=== PATIENT | male | born 1995 | race African-American/Black ===

== ENCOUNTER 2020-07-10 17:48 | Emergency (ER) | payer MEDICAID ==
[~2020-07-10] VITALS: Ht 167.6 cm; Wt 61.2 kg
[2020-07-10] MEDS ORDERED: ALPR0.25 PO (18:52)
--- NOTE | 2020-07-10 19:16 | NUR ---
Patient given written and verbal discharge instructions. Patient verbalizes understanding of instructions. Patient is ambulatory with steady gait. Patient given list of available shelters in surrounding area.
[2020-07-10 19:19] VITALS: BP 119/77
[2020-07-11] MEDS ORDERED: PRED50TA PO (10:56)
[2020-07-11] MEDS ORDERED: ALBU8.5H8 INH (10:56)
== END 2020-07-10 19:20 | disposition home or self-care (01) ==
LOC: ER 17:48
DX: F41.9 Anxiety disorder, unspecified (principal); Z59.0 Homelessness
CPT/HCPCS: A4663

== ENCOUNTER 2020-07-11 09:35 | Emergency (ER) | payer MEDICAID ==
[~2020-07-11] VITALS: Ht 167.6 cm; Wt 61.2 kg
[~2020-07-11 09:35] MED LIST: ALPR0.25 PO
--- NOTE | 2020-07-11 09:44 | NUR ---
MD@bedside, medical screening exam in progress
[2020-07-11] MEDS ORDERED: IPRATROPIUM BROMIDE 0.5 MG/2.5 ML NEBU NEB ONE (10:00)
[2020-07-11] MEDS ORDERED: IPRATROPIUM BROMIDE 0.5 MG/2.5 ML NEBU ONE (10:00)
[2020-07-11] MEDS ORDERED: predniSONE 10 MG TABLET PO ONE (10:00)
[2020-07-11] MEDS ORDERED: ALBUTEROL SULFATE 2.5 MG/3 ML NEBU ONE (10:00)
[2020-07-11] MEDS ORDERED: ALBUTEROL SULFATE 2.5 MG/3 ML NEBU NEB ONE (10:00)
[2020-07-11] MEDS ORDERED: predniSONE 10 MG TABLET ONE (10:02)
[2020-07-11] MEDS ORDERED: predniSONE 50 MG TABLET ONE (10:02)
--- NOTE | 2020-07-11 10:22 | NUR ---
Patient is resting comfortably on gurney and not in acute distress, respiration:easy, symmetrical & non-labored, for disposition@this time.
--- NOTE | 2020-07-11 10:42 | NUR ---
Patient ambulated to bathroom with brisk steady gait.
--- NOTE | 2020-07-11 10:48 | NUR ---
Patient is screaming and cursing to staff after going to the bathroom. Security officers assistance was requested.
--- NOTE | 2020-07-11 10:49 | NUR ---
Dr Quiros @ bedside.
--- NOTE | 2020-07-11 10:52 | NUR ---
Patient screaming and verbally abusing all staff. Security called. Patients vitals WNLs. Needs met. Prescription being given by ER MD Dr. Quiros. Safety measures in place.
[2020-07-11] MEDS ORDERED: ALBU8.5H8 INH (10:56)
[2020-07-11] MEDS ORDERED: PRED50TA PO (10:56)
[2020-07-11 11:06] VITALS: BP 120/74
--- NOTE | 2020-07-11 11:07 | NUR ---
Patient discharged to home in stable condition. Written and verbal after care instructions given. Patient verbalizes understanding of instructions. Stressed follow up or return to ER for worsening s/s. Steady gait. Homeless packet given. VSS. Saturations 100%. All belongings with patient. Patient continues to yell and scream at staff as he is walking out the door.
== END 2020-07-11 11:08 | disposition home or self-care (01) ==
LOC: ER 09:35
DX: J45.901 Unspecified asthma with (acute) exacerbation (principal); F17.210 Nicotine dependence, cigarettes, uncomplicated; Z59.0 Homelessness
CPT/HCPCS: 93005; 94640; 99283; 99406; J7512 ×2; A4663; J3590

== ENCOUNTER 2020-08-11 00:17 | Emergency (ER) | payer MEDICAID ==
[~2020-08-11] VITALS: Ht 167.6 cm; Wt 57.2 kg
[~2020-08-11 00:17] MED LIST changes: +ALBU8.5H8 INH; +PRED50TA PO
--- NOTE | 2020-08-11 00:28 | NUR ---
Called house officer for sitter. No sitter available. Will monitor pt. 1:1. Suicide precautions implemented. Security at bedside to search pt. for contraband. Pt. belongings in bag at nursing station. Pt. being cooperative at this time.
--- NOTE | 2020-08-11 00:49 | NUR ---
xray at bedside
[2020-08-11 00:57] LABS: BASOPHILS # (AUTO) 0.1 K/uL (0.0-8.0); BASOPHILS % (AUTO) 1.4 % (0.0-2.0); EOSINOPHILS # (AUTO) 0.4 K/uL (0.0-0.7); EOSINOPHILS % (AUTO) 5.3 % (0.0-7.0); HEMATOCRIT 36.7 % (36.7-47.1); HEMOGLOBIN 12.8 g/dL (12.5-16.3); LYMPHOCYTES # (AUTO) 2.9 K/uL (20.0-40.0); LYMPHOCYTES % (AUTO) 36.8 % (20.5-51.5); MEAN CORPUSCULAR HEMOGLOBIN 26.9 uug (23.8-33.4); MEAN CORPUSCULAR HGB CONC 35 g/dL (32.5-36.3); MEAN CORPUSCULAR VOLUME 77.1 fL (73.0-96.2); MONOCYTES # (AUTO) 0.6 K/uL (2.0-10.0); MONOCYTES % (AUTO) 8.2 % (0.0-11.0); NEUTROPHILS # (AUTO) 3.7 K/uL (1.8-8.9); NEUTROPHILS % (AUTO) 48.3 % (38.5-71.5); PLATELET COUNT (AUTO) 293 K/uL (152-348); RED BLOOD CELL COUNT(AUTO) 4.76 MIL/uL (4.06-5.63); WHITE BLOOD COUNT (AUTO) 7.7 K/uL (3.6-10.2)
[2020-08-11 01:11] LABS: ETHANOL < 3 MG/DL (0-0)
[2020-08-11 01:20] LABS: ALANINE AMINOTRANSFERASE 30 U/L (16-63); ALKALINE PHOSPHATASE 79 U/L (50-136); ASPARTATE AMINOTRANSFERASE 22 U/L (15-37); BILIRUBIN,DIRECT 0.1 mg/dL (0.0-0.2); BILIRUBIN,TOTAL 0.1 mg/dL (0.2-1.0); CARBON DIOXIDE 29 mmol/L (21-32); CHLORIDE 104 mmol/L (98-107); CREATININE 0.9 mg/dL (0.6-1.3); GLUCOSE 99 mg/dL (74-106); POTASSIUM 3.3 mmol/L (3.5-5.1); UREA NITROGEN, BLOOD 10 mg/dL (7-18)
--- NOTE | 2020-08-11 01:24 | NUR ---
Pt. resting at bedside. Vss. 1:1 monitoring and suicide precautions remain in place. Pt. offered food and toileting. Will continue to monitor.
[2020-08-11 01:38] LABS: *BILIRUBIN,URIN NEGATIVE (NEGATIVE); *BLOOD, URINE NEGATIVE (NEGATIVE); *CLARITY,URINE CLEAR (CLEAR); *COLOR,URINE YELLOW (YELLOW); *KETONES,URINE NEGATIVE (NEGATIVE); *UROBILINOGEN,URINE 0.2 E.U./dl (NORMAL); LEUKOCYTE ESTERASE ,URINE NEGATIVE (NEGATIVE); NITRITE, URINE NEGATIVE (NEGATIVE); PH,URINE 8.5 (5.0-8.0); UGLUCOSE NEGATIVE (NEGATIVE)
[2020-08-11 01:53] LABS: *AMPHETAMINE, URINE NEGATIVE (NEGATIVE); *CANNABINOID, URINE POSITIVE (NEGATIVE); *COCCAINE, URINE NEGATIVE (NEGATIVE); *OPIATE, URINE NEGATIVE (NEGATIVE); *PHENCYCLIDINE SCREEN,URINE NEGATIVE (NEGATIVE)
[2020-08-11] MEDS ORDERED: POTASSIUM CHLORIDE 20 MEQ TAB.PRT.SR PO ONE (02:00)
[2020-08-11] MEDS ORDERED: POTASSIUM CHLORIDE 20 MEQ TAB.PRT.SR ONE (02:00)
--- NOTE | 2020-08-11 02:13 | NUR ---
Pt. willing to be voluntarily admitted. Pt. medically cleared per Dr. Galarza. Contacted [facility] for pt. transfer and Faxed over pt. information. Waiting for confirmation of acceptance of the pt.
--- NOTE | 2020-08-11 02:23 | NUR ---
Pt. stated he felt wheezy. MD notified and breathing treatment was ordered. RT at bedside providing breathing treatment.
[2020-08-11] MEDS ORDERED: IPRATROPIUM BROMIDE 0.5 MG/2.5 ML NEBU ONE (02:29)
[2020-08-11] MEDS ORDERED: ALBUTEROL SULFATE 2.5 MG/ 0.5 ML NEBU ONE (02:29)
[2020-08-11] MEDS ORDERED: IPRATROPIUM BROMIDE 0.5 MG/2.5 ML NEBU NEB ONE (02:30)
[2020-08-11] MEDS ORDERED: ALBUTEROL SULFATE 2.5 MG/3 ML NEBU NEB ONE (02:30)
--- NOTE | 2020-08-11 02:43 | NUR ---
Breathing treatment ended, pt. states he feels better and is resting in bed. Vss. Will continue to monitor.
[2020-08-11 03:00] LABS: ACETAMINOPHEN < 2.0 ug/mL (10-30)
--- NOTE | 2020-08-11 03:42 | NUR ---
Pt. resting in bed. Continuing to monitor 1:[address] Vss. Will continue to monitor.
--- NOTE | 2020-08-11 03:52 | NUR ---
Called [facility] intake to get update on pt. transfer, they are waiting for traffic warehouse supervisor to review the pt. info. Will continue to follow up.
--- NOTE | 2020-08-11 04:51 | NUR ---
Pt. sleeping. Suicide precations still in place. Will continue to monitor.
--- NOTE | 2020-08-11 04:54 | NUR ---
Called [facility] intake and spoke with Bettie to get update on pt. transfer, they are waiting for bath house attendant to review the pt. info. They stated they will call us with an update. Will continue to follow up.
--- NOTE | 2020-08-11 05:47 | NUR ---
Pt. sleeping. Vss. Suicide precautions in place. Will continue to monitor.
--- NOTE | 2020-08-11 07:09 | NUR ---
Report given to Elzbieta [facility] for continuity of care.
--- NOTE | 2020-08-11 08:50 | NUR ---
Report given to Miroslava of [facility], [phone] MD Arechiga
--- NOTE | 2020-08-11 09:02 | NUR ---
[facility] arranged to transport patient to [facility] in [place] a[place], , ETA 40 min.
--- NOTE | 2020-08-11 09:55 | NUR ---
Patient transferred to [facility] at this time, no signs of acuted distress noted
== END 2020-08-11 09:55 ==
LOC: ER 00:17
DX: F31.9 Bipolar disorder, unspecified (principal); R45.851 Suicidal ideations; Z20.822 Contact with and (suspected) exposure to COVID-19; F17.210 Nicotine dependence, cigarettes, uncomplicated; F20.9 Schizophrenia, unspecified; J45.909 Unspecified asthma, uncomplicated; Z91.013 Allergy to seafood
CPT/HCPCS: 36415; 71045; 85025; 93005; A4663; G0480; J3590

== ENCOUNTER 2021-04-04 05:51 | Emergency (ER) | payer SELFPAY ==
--- NOTE | 2021-04-04 06:30 | NUR ---
Attempted to triaged patient but stated "I don't want to be seen by ERMD or be triaged. I just want a print out of my ID."
--- NOTE | 2021-04-04 06:44 | NUR ---
After patient was given a copy of his ID, patient states "this is all I wanted". Denies SI.
--- NOTE | 2021-04-04 06:45 | NUR ---
Patient was not triaged or seen by ERMD.
== END 2021-04-04 06:47 | disposition left against medical advice (07) ==
LOC: ER 05:53
DX: Z53.21 Procedure and treatment not carried out due to patient leaving prior to being seen by health care provider (principal)